=== PATIENT | male | born 1985 | race Caucasian/White ===

== ENCOUNTER 2019-12-30 10:27 | Inpatient (IN) ==
[2019-12-30 11:03] LABS: Basophils % 0.6 %; Eosinophils # 0.1 K/mcL (0.0-0.6); Eosinophils % 2.2 %; Hematocrit 47.7 % (37.5-50.1); Hemoglobin 16.2 g/dL (12.9-16.9); Immature Granulocytes % 0.6 % (0-4); Lymphocytes # 1.3 K/mcL (0.6-4.6); Lymphocytes % 23.5 %; Mean Corpuscular Hemoglobin 29.9 pg (28.0-33.3); Mean Platelet Volume 10.7 fL (9.4-12.4); Monocytes # 0.6 K/mcL (0.0-1.3); Monocytes % 10.7 %; Neutrophils # 3.4 K/mcL (1.6-8.9); Platelet Count 199 K/mcL (140-400); Red Blood Count 5.42 M/mcL (4.19-5.50); Red Cell Distribution Width 12.2 % (11.5-14.5); Segmented Neutrophils % 62.4 %; White Blood Count 5.4 K/mcL (4.3-11.1)
[2019-12-30 11:03] LABS: Bacteria,Urine Few per hpf (None-Few); Bilirubin,Urine Negative (Negative); Blood,Urine Negative (Negative); Clarity,Urine Clear (Clear); Color,Urine Yellow (Yellow); Glucose,Urine (UA) Normal (Normal); Ketones,Urine Trace mg/dL (Negative); Leukocyte Esterase,Urine Trace (Negative); Mucus,Urine Few per lpf (None-Few); Nitrite,Urine Negative (Negative); Protein,Urine 30 mg/dL (Neg-Trace); RBC,Urine 0-3 per hpf (0-3); Specific Gravity,Urine > 1.030 (1.010-1.025); Squamous Epithelial Cell,Urine Few per hpf (None-Few)
[2019-12-30 11:23] LABS: Acetaminophen < 10 mcg/mL (10-20); BUN/Creatinine Ratio 12 (6-26); Blood Urea Nitrogen 10 mg/dL (6-20); Calcium 9.3 mg/dL (8.6-10.3); Carbon Dioxide 25 mEq/L (23-29); Chloride 105 mEq/L (98-107); Ethanol < 10 mg/dL (Less than 10); Glucose 113 mg/dL (70-105); Osmolality,Calculated 284 (280-300); Potassium 3.9 mEq/L (3.5-5.1); Salicylate < 2.5 mg/dL (15.0-30.0); Sodium 137 mEq/L (136-145); eGFR For African Americans > 60 (> 60); eGFR For Non-African Americans > 60 (> 60)
[2019-12-30 12:00] LABS: Amphetamine Screen,Urine Positive ng/mL (Cutoff=1000); Barbiturate Screen,Urine Negative ng/mL (Cutoff=200); Benzodiazepines Screen,Urine Positive ng/mL (Cutoff=200); Cannabinoid Screen,Urine Positive ng/mL (Cutoff = 50); Cocaine Screen,Urine Positive ng/mL (Cutoff= 300); Opiate Screen,Urine Positive ng/mL (Cutoff=300); Phencyclidine Screen,Urine Negative ng/mL (Cutoff=25)
[2019-12-30] MEDS ORDERED: haloperidoL 5 MG TABLET PO PRN (14:03)
[2019-12-30] MEDS ORDERED: *HR* LORazepam 2 MG/ML VIAL IM PRN (14:03)
[2019-12-30] MEDS ORDERED: MOM Conc 10 ML UD.LIQ PO PRN (14:03)
[2019-12-30] MEDS ORDERED: Haloperidol Lactate 5 MG/ML VIAL IM PRN (14:03)
[2019-12-30] MEDS ORDERED: *HR* LORazepam 1 MG TABLET PO PRN (14:03)
[2019-12-30] MEDS ORDERED: Mag Hydrox/Al Hydrox/Simeth 30 ML UDC PO PRN (14:03)
[2019-12-30] MEDS ORDERED: Ibuprofen 400 MG TABLET PO PRN (14:03)
[2019-12-30] MEDS ORDERED: Nicotine 21 MG PATCH.TD24 TD SCH (15:00)
[2019-12-30] MEDS: Baclofen 10 MG TABLET PO SCH ×2 (15:46→20:44)
[2019-12-30 15:47] LABS: Estimated Average Glucose 105 mg/dl; Hemoglobin A1C 5.3 %
[2019-12-30] MEDS: Nicotine 2 MG GUM BC PRN ×2 (15:48→20:44)
[2019-12-30] MEDS: hydrOXYzine pamoate 25 MG CAPSULE PO PRN (20:44)
[2019-12-30] MEDS: traZODone 50 MG TABLET PO PRN (20:44)
[2019-12-31] MEDS: Baclofen 10 MG TABLET PO SCH ×3 (09:41→20:29)
[2019-12-31] MEDS: (Dolutegravir Sodium [Tivicay] 50 MG) PO SCH (09:44)
[2019-12-31] MEDS: EMTRICITABINE PO SCH (09:44)
[2019-12-31] MEDS: TENOFOV ALAFENAM PO SCH (09:44)
[2019-12-31] MEDS: Nicotine 2 MG GUM BC PRN ×3 (09:47→20:28)
[2019-12-31] MEDS ORDERED: cloNIDine HCL 0.1 MG TABLET PO STA (11:44)
[2019-12-31] MEDS: Acetaminophen 325 MG TABLET PO PRN (20:28)
[2019-12-31] MEDS: cloNIDine HCL 0.1 MG TABLET PO PRN (20:28)
[2019-12-31] MEDS: hydrOXYzine pamoate 25 MG CAPSULE PO PRN (20:29)
[2019-12-31] MEDS: traZODone 50 MG TABLET PO PRN (20:29)
[2020-01-01] MEDS: Nicotine 2 MG GUM BC PRN ×5 (08:40→20:26)
[2020-01-01] MEDS: Baclofen 10 MG TABLET PO SCH ×3 (08:40→20:27)
[2020-01-01] MEDS: (Dolutegravir Sodium [Tivicay] 50 MG) PO SCH (08:41)
[2020-01-01] MEDS: EMTRICITABINE PO SCH (08:41)
[2020-01-01] MEDS: TENOFOV ALAFENAM PO SCH (08:41)
[2020-01-01] MEDS: hydrOXYzine pamoate 25 MG CAPSULE PO PRN ×2 (08:43→20:24)
[2020-01-01] MEDS: cloNIDine HCL 0.1 MG TABLET PO PRN (14:32)
[2020-01-01] MEDS: traZODone 50 MG TABLET PO PRN (20:24)
[2020-01-01] MEDS: Acetaminophen 325 MG TABLET PO PRN (20:25)
[2020-01-02] MEDS: hydrOXYzine pamoate 25 MG CAPSULE PO PRN (08:27)
[2020-01-02] MEDS: TENOFOV ALAFENAM PO SCH (08:28)
[2020-01-02] MEDS: Baclofen 10 MG TABLET PO SCH (08:28)
[2020-01-02] MEDS: EMTRICITABINE PO SCH (08:28)
[2020-01-02] MEDS: (Dolutegravir Sodium [Tivicay] 50 MG) PO SCH (08:28)
[2020-01-02] MEDS: Nicotine 2 MG GUM BC PRN ×2 (08:29→10:34)
[2020-01-02 09:29] VITALS: BP 127/82
== END 2020-01-02 12:40 | disposition home or self-care (01) | DRG 751 ==
LOC: EMEROOARM 10:27 → 1ANU 13:48
PROVIDERS: ADMIT Psychiatry & Neurology Psychiatry; ATTEND Psychiatry & Neurology Psychiatry